=== PATIENT | male | born 1965 | race Two or more races ===

== ENCOUNTER 2018-11-11 14:19 | Emergency (ER) | payer OTHER ==
[~2018-11-11] VITALS: Ht 180.3 cm; Wt 81.6 kg
--- NOTE | 2018-11-11 15:28 | NUR ---
urine collected and sent to lab.
--- NOTE | 2018-11-11 15:31 | NUR ---
CAME TO THE ER C/O OF CHILLS x 2 DAYS, "I FEEL SICK, I WANT TO KILL MYSELF" +SI/-HI. HAS PLAN TO JUMP OFF A BRIDGE. NO OTHER COMPLAINTS AT THIS TIME, NO ACUTE DISTRESS NOTED. SUICIDE PRECAUTIONS IMPLEMENTED, SITTER AT BEDSIDE. READY FOR EVAL.
[2018-11-11 15:45] LABS: HEMATOCRIT 38 % (39-51); HEMOGLOBIN 12.8 g/dL (13.5-17.5); LYMPHOCYTES # (AUTO) 1.3 /CMM (0.8-4.8); LYMPHOCYTES % (AUTO) 30.9 % (20.0-44.0); MEAN CORPUSCULAR HGB CONC 34 g/dl (31.0-36.0); MEAN CORPUSCULAR VOLUME 94 fL (80-96); MONOCYTES # (AUTO) 0.4 /CMM (0.1-1.30); MONOCYTES % (AUTO) 8.9 % (2.0-12.0); NEUTROPHILS # (AUTO) 2.4 /CMM (1.8-8.9); NEUTROPHILS % (AUTO) 58.2 % (43.0-81.0); PLATELET COUNT (AUTO) 204 /CMM (150-450); RED BLOOD CELL COUNT(AUTO) 4.04 MIL/uL (4.5-6.0); WHITE BLOOD COUNT (AUTO) 4.1 K/uL (4.3-11.0)
[2018-11-11 15:47] LABS: APPEARANCE,URINE Clear (CLEAR); BILIRUBIN,URINE Negative (NEGATIVE); BLOOD, URINE Negative Ery/uL (NEGATIVE); COLOR,URINE Yellow (YELLOW); KETONES,URINE Negative (NEGATIVE); LEUKOCYTE ESTERASE ,URINE Negative (NEGATIVE); NITRITE, URINE Negative (NEGATIVE); PH,URINE 6.5 (5.0-8.0); PROTEIN,URINE Negative (NEGATIVE); UGLUCOSE Negative (NEGATIVE)
[2018-11-11 15:53] LABS: CALCIUM, SERUM 8.6 mg/dL (8.5-10.1); CARBON DIOXIDE 33 mmol/L (21-32); CHLORIDE 104 mmol/L (98-107); CREATININE 0.9 mg/dL (0.6-1.3); GLUCOSE 102 mg/dL (74-106); POTASSIUM 3.8 mmol/L (3.5-5.1); SODIUM SERUM 142 mmol/L (136-145); UREA NITROGEN, BLOOD 12 mg/dL (7-18)
[2018-11-11 15:56] LABS: URINE AMORPHOUS URATE Few /HPF (None Seen)
[2018-11-11 15:57] LABS: BACTERIA,URINE Rare /HPF (None Seen); RBC,URINE 0-2 /HPF (0-2); SQUAMOUS EPITHELIAL CELL,UR None Seen /HPF (None Seen); WBC,URINE 0-2 /HPF (0-3)
[2018-11-11 15:59] LABS: ALANINE AMINOTRANSFERASE 26 U/L (12-78); ALBUMIN 3.8 g/dL (3.4-5.0); ALCOHOL, BLOOD < 3 mg/dL (0-0); ALKALINE PHOSPHATASE 57 U/L (46-116); ASPARTATE AMINOTRANSFERASE 21 U/L (15-37); BILIRUBIN,DIRECT 0.1 mg/dL (0.0-0.2); BILIRUBIN,TOTAL 0.5 mg/dL (0.2-1.0); TOTAL PROTEIN, SERUM 6.6 g/dL (6.4-8.2)
[2018-11-11 16:00] LABS: ACETAMINOPHEN < 2 ug/ml (10-30); SALICYLATE < 2.8 mg/dL (2.8-20.0)
--- NOTE | 2018-11-11 16:04 | NUR ---
Social service consult requested by Dr. Lau for suicidal ideation. Pt. is a 53 year old male who came to [facility] for suicidal ideation with plan to jump off a bridge into a river. SHU met with pt. bedside. Pt. is alert and oriented x 3. Pt. is cooperative with SW. Pt. states he is homeless and has been for the past 6 years. Pt. states, he is suicidal with a plan to jump off a bridge. Pt. is wanting voluntary admission to a psychiatric hospital. SHU informed pt. she will refer him to [facility]. Pt. agreed. 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 Pt. denies alcohol and marijuana use. Pt. receives food stamps and GR. Pt. was receiving SSI benefits but does not anymore and wants to reinstate them. SHU sent referral packet to [facility] at . SHU called [facility] and spoke to Rukhsana. She stated, they will most likely accept pt. when medically cleared. SHU informed her to follow up with ED and gave her the contact number.
--- NOTE | 2018-11-11 17:16 | NUR ---
PT RESTING COMFORTABLY, NO COMPLAINTS AT THIS TIME. ASKING FOR FOOD. CALLED DIETARY FOR FOOD TRAY
--- NOTE | 2018-11-11 18:12 | NUR ---
CALLED [facility] FOR EVAL. WILL COME AFTER ENCINO VISIT
--- NOTE | 2018-11-11 19:42 | NUR ---
Patient is resting comfortably in bed with eyes closed. Easily aroused. VSS
--- NOTE | 2018-11-11 20:17 | NUR ---
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
--- NOTE | 2018-11-11 20:35 | NUR ---
CALLED [facility] FOR TRANSFER ETA OF [id number] WAS GIVEN. TRIP#[id number]
[2018-11-11 22:15] VITALS: BP 138/76
--- NOTE | 2018-11-11 22:15 | NUR ---
REPORT GIVEN TO YOLANDE MILLAN AT [facility] FOR [facility]
--- NOTE | 2018-11-11 22:45 | NUR ---
REPORT GIVEN TO [facility] UNIT 310 FOR TRANSPORT
== END 2018-11-11 22:55 ==
LOC: ER 14:20
DX: R45.851 Suicidal ideations (principal); F32.9 Major depressive disorder, single episode, unspecified; F41.9 Anxiety disorder, unspecified; F10.10 Alcohol abuse, uncomplicated; F15.10 Other stimulant abuse, uncomplicated; Y90.0 Blood alcohol level of less than 20 mg/100 ml
CPT/HCPCS: 36415; 80048; 80076; 80305; 80307; 80329; 81001; 85025; 99285; G0480; 81000-TC

== ENCOUNTER 2019-07-28 23:04 | Emergency (ER) | payer OTHER ==
[~2019-07-28] VITALS: Ht 170.2 cm; Wt 72.6 kg
--- NOTE | 2019-07-28 23:20 | NUR ---
PT AAOX4. AMBULATORY WITH STEADGY GAIT. BIBS FOR SI W/ PLAN TO RUN IN TO TRAFFIC. -HI. PLACED IN GOWN, BELONINGS IN LOCKER. PT PLACED ON MONITOR AND PULSE OX. VSS. NO ACUTE DISTRESS NTOED. SITTER AT BEDSIDE.
[2019-07-28] MEDS ORDERED: OLANZAPINE 5 MG TABLET ONE (23:23)
--- NOTE | 2019-07-28 23:28 | NUR ---
SECURITY CALLED FOR WANDING.
[2019-07-28] MEDS ORDERED: OLANZAPINE 5 MG TABLET PO ONE (23:30)
[2019-07-28 23:34] LABS: BASOPHILS # (AUTO) 0.1 /CMM (0.0-0.2); BASOPHILS % (AUTO) 1.4 % (0.0-2.0); EOSINOPHILS % (AUTO) 2.1 % (0.0-6.0); HEMATOCRIT 41 % (39-51); LYMPHOCYTES # (AUTO) 1.5 /CMM (0.8-4.8); LYMPHOCYTES % (AUTO) 29.8 % (20.0-44.0); MEAN CORPUSCULAR HGB CONC 34 g/dl (31.0-36.0); MEAN CORPUSCULAR VOLUME 94 fL (80-96); MONOCYTES # (AUTO) 0.4 /CMM (0.1-1.30); MONOCYTES % (AUTO) 7.5 % (2.0-12.0); NEUTROPHILS # (AUTO) 3.1 /CMM (1.8-8.9); NEUTROPHILS % (AUTO) 59.2 % (43.0-81.0); PLATELET COUNT (AUTO) 289 /CMM (150-450); RED BLOOD CELL COUNT(AUTO) 4.39 MIL/uL (4.5-6.0); WHITE BLOOD COUNT (AUTO) 5.2 K/uL (4.3-11.0)
[2019-07-28 23:42] LABS: CALCIUM, SERUM 8.2 mg/dL (8.5-10.1); CARBON DIOXIDE 31 mmol/L (21-32); CHLORIDE 104 mmol/L (98-107); GLUCOSE 148 mg/dL (74-106); POTASSIUM 3.5 mmol/L (3.5-5.1); SODIUM SERUM 140 mmol/L (136-145); UREA NITROGEN, BLOOD 14 mg/dL (7-18)
[2019-07-28 23:53] LABS: ACETAMINOPHEN < 2 ug/ml (10-30); ALANINE AMINOTRANSFERASE 24 U/L (12-78); ALBUMIN 3.8 g/dL (3.4-5.0); ALCOHOL, BLOOD < 3 mg/dL (0-0); ALKALINE PHOSPHATASE 73 U/L (46-116); ASPARTATE AMINOTRANSFERASE 23 U/L (15-37); BILIRUBIN,DIRECT 0.2 mg/dL (0.0-0.2); SALICYLATE < 0.2 mg/dL (2.8-20.0); TOTAL PROTEIN, SERUM 6.8 g/dL (6.4-8.2)
[2019-07-29 00:02] LABS: APPEARANCE,URINE Clear (CLEAR); BILIRUBIN,URINE SMALL (NEGATIVE); BLOOD, URINE Negative Ery/uL (NEGATIVE); COLOR,URINE Yellow (YELLOW); KETONES,URINE Trace (NEGATIVE); LEUKOCYTE ESTERASE ,URINE Negative (NEGATIVE); NITRITE, URINE Negative (NEGATIVE); PROTEIN,URINE Negative (NEGATIVE); UGLUCOSE Negative (NEGATIVE)
--- NOTE | 2019-07-29 00:19 | NUR ---
Patient is resting comfortably in bed with eyes closed. Easily aroused. VSS.
--- NOTE | 2019-07-29 00:29 | NUR ---
CLINICAL INFORMATION FAXED TO [facility]
--- NOTE | 2019-07-29 05:27 | NUR ---
PER TIKI FROM [facility], NO BEDS AVAILABLE AT THIS TIME
--- NOTE | 2019-07-29 05:57 | NUR ---
PT ASLEEP. EASILY AROUSED.
--- NOTE | 2019-07-29 06:37 | NUR ---
PT ACCEPTED TO [facility] ACCEPTING MD: DR. DE JESUS/ DR. LINARES NUMBER FOR REPORT: [phone] EXT [phone]
--- NOTE | 2019-07-29 07:01 | NUR ---
[facility] WILL CALL [facility].
--- NOTE | 2019-07-29 07:06 | NUR ---
[facility] ETA [id number]
--- NOTE | 2019-07-29 07:13 | NUR ---
REPORT GIVEN TO DOLLY LANIER FOR [facility]
--- NOTE | 2019-07-29 08:53 | NUR ---
REPORT GIVEN TO GRAIN GRADER. IN NO DISTRESS.
[2019-07-29 09:03] VITALS: BP 120/81
--- NOTE | 2019-07-29 09:03 | NUR ---
Patient discharged to [facility] VIA EMS in stable condition.
== END 2019-07-29 09:04 ==
LOC: ER 23:09
DX: R45.851 Suicidal ideations (principal); F32.9 Major depressive disorder, single episode, unspecified; F41.9 Anxiety disorder, unspecified; Z98.890 Other specified postprocedural states
CPT/HCPCS: 36415; 80048; 80076; 80305; 80307; 80329; 81001; 85025; 99285; G0480; 81000-TC

== ENCOUNTER 2019-12-30 22:38 | Emergency (ER) | payer OTHER ==
[~2019-12-30] VITALS: Ht 170.2 cm; Wt 73.9 kg
--- NOTE | 2019-12-30 23:00 | NUR ---
PT WAS BIBS FOR PSYCHIATRIC EVALUATION AND POSSIBLE ADMISSION TO [facility] FOR SI AND HI. PT REPORTED HEARING VOICES TELLING HIM TO CHOP PEOPLE'S HEADS OFF AND TO KILL HIMSELF. PT AMBULATORY TO BED 13. WAS PLACED ON HOSPITAL GOWN. ALL BELONGINGS WERE TAKEN AWAY AND PLACED ON SAFE LOCKER. VSS. SI AND HI PRECAUTION IN PLACE. PT REMAINED ON CLOSE SUPERVISION OF A SITTER FOR SAFETY. WILL CONT TO MONITOR.
--- NOTE | 2019-12-30 23:00 | NUR ---
Note rosalie in EDM - 12/31/19 at 0012 by KADY PT WAS BIBS FOR PSYCHIATRIC EVALUATION AND POSSIBLE ADMISSION TO [facility] FOR SI. PT REPORTED NO SPECIFIC PLAN AT THIS TIME. PT AMBULATORY TO BED 13. WAS PLACED ON HOSPITAL GOWN. ALL BELONGINGS WERE TAKEN AWAY AND PLACED ON SAFE LOCKER. VSS. SI PRECAUTION IN PLACE. PT REMAINED ON CLOSE SUPERVISION OF A SITTER FOR SAFETY. WILL CONT TO MONITOR ,
[2019-12-30 23:15] LABS: EOSINOPHILS % (AUTO) 2.2 % (0.0-6.0); HEMATOCRIT 43 % (39-51); HEMOGLOBIN 14.5 g/dL (13.5-17.5); LYMPHOCYTES # (AUTO) 1.7 /CMM (0.8-4.8); LYMPHOCYTES % (AUTO) 34.4 % (20.0-44.0); MEAN CORPUSCULAR HGB CONC 34 g/dl (31.0-36.0); MEAN CORPUSCULAR VOLUME 95 fL (80-96); MONOCYTES # (AUTO) 0.4 /CMM (0.1-1.30); MONOCYTES % (AUTO) 7.9 % (2.0-12.0); NEUTROPHILS # (AUTO) 2.7 /CMM (1.8-8.9); NEUTROPHILS % (AUTO) 54.5 % (43.0-81.0); PLATELET COUNT (AUTO) 257 /CMM (150-450); RED BLOOD CELL COUNT(AUTO) 4.54 MIL/uL (4.5-6.0)
[2019-12-30 23:32] LABS: ALANINE AMINOTRANSFERASE 22 U/L (12-78); ALBUMIN 4.2 g/dL (3.4-5.0); ALKALINE PHOSPHATASE 56 U/L (46-116); ASPARTATE AMINOTRANSFERASE 20 U/L (15-37); BILIRUBIN,DIRECT 0.2 mg/dL (0.0-0.2); BILIRUBIN,TOTAL 0.9 mg/dL (0.2-1.0); CALCIUM, SERUM 8.4 mg/dL (8.5-10.1); CARBON DIOXIDE 33 mmol/L (21-32); CHLORIDE 104 mmol/L (98-107); CREATININE 1.2 mg/dL (0.6-1.3); GLUCOSE 111 mg/dL (74-106); POTASSIUM 3.5 mmol/L (3.5-5.1); SODIUM SERUM 142 mmol/L (136-145); TOTAL PROTEIN, SERUM 7.5 g/dL (6.4-8.2); UREA NITROGEN, BLOOD 12 mg/dL (7-18)
[2019-12-30 23:40] LABS: ACETAMINOPHEN 0 ug/ml (10-30)
[2019-12-30 23:41] LABS: SALICYLATE < 0.2 mg/dL (2.8-20.0)
--- NOTE | 2019-12-30 23:54 | NUR ---
Patient is resting comfortably in bed with eyes closed. Easily aroused. VSS
[2019-12-30 23:56] LABS: APPEARANCE,URINE CLEAR (CLEAR); BILIRUBIN,URINE SMALL (NEGATIVE); BLOOD, URINE NEGATIVE Ery/uL (NEGATIVE); COLOR,URINE YELLOW (YELLOW); KETONES,URINE NEGATIVE (NEGATIVE); LEUKOCYTE ESTERASE ,URINE NEGATIVE (NEGATIVE); NITRITE, URINE NEGATIVE (NEGATIVE); PROTEIN,URINE NEGATIVE (NEGATIVE); UGLUCOSE NEGATIVE (NEGATIVE)
[2019-12-31] LABS: BACTERIA,URINE Few /HPF (None Seen); MUCUS,URINE Many /LPF (None Seen); SQUAMOUS EPITHELIAL CELL,UR Rare /HPF (None Seen)
[2019-12-31 00:03] LABS: ALCOHOL, BLOOD < 3 mg/dL (0-0)
--- NOTE | 2019-12-31 03:06 | NUR ---
CLINICAL FAXED TO [facility] FOR VOLUNTARY ADMISSION.
--- NOTE | 2019-12-31 03:26 | NUR ---
PT ASLEEP, NO ACUTE DISTRESS NOTED, RESP EVEN AND UNLABORED. CALL LIGHT WITHIN REACH. WILL CONTINUE TO MONITOR PT CLOSELY.
--- NOTE | 2019-12-31 05:01 | NUR ---
PT ACCEPTED AT [facility] ACCEPTING MD NOGUERA PHONE# FOR REPORT PT WILL GO TO UNIT 1
--- NOTE | 2019-12-31 05:18 | NUR ---
SPOKE WITH [facility] IN REGARDS TO TRANSPORT TO [facility]. ETA 1-4 HOURS. TRIP # [id number].
[2019-12-31 05:37] VITALS: BP 127/73
--- NOTE | 2019-12-31 05:42 | NUR ---
[facility] CALLED REGARDING TRANSPPORT ([facility]) ETA 45MIN.
--- NOTE | 2019-12-31 05:43 | NUR ---
REPORT GIVEN TO MONROE LANIER FOR [facility]
--- NOTE | 2019-12-31 06:36 | NUR ---
TRANSPORT AT BEDSIDE REPORT GIVEN TO EMT TRANSPORT.
== END 2019-12-31 06:50 ==
LOC: ER 22:49
DX: F29 Unspecified psychosis not due to a substance or known physiological condition (principal); F32.9 Major depressive disorder, single episode, unspecified; F41.9 Anxiety disorder, unspecified; Z90.89 Acquired absence of other organs; Z98.890 Other specified postprocedural states; Z59.0 Homelessness
CPT/HCPCS: 36415; 80048; 80076; 80305; 80307; 80329; 81001; 85025; 99285; G0480; 81000-TC

== ENCOUNTER 2020-10-20 16:34 | Emergency (ER) | payer OTHER ==
[~2020-10-20] VITALS: Ht 170.2 cm; Wt 61.2 kg
--- NOTE | 2020-10-20 17:10 | NUR ---
CALLED TO TRIAGE NOT IN WAITING ROOM
--- NOTE | 2020-10-20 18:01 | NUR ---
PT SELF PRESENTS TO ED C/O DEPRESSION W/ SUICIDAL IDEATION W/ PLAN TO RUN TO TRAFFIC. ADMITS TO METH USE. DENIES HI. PT IS VERBALLY RESPONSIVE AND COOPERATIVE TO STAFF. STABLE VITALS. NAD NOTED. AWAITING MD WHITTEN.
--- NOTE | 2020-10-20 18:03 | NUR ---
KD CHEN AT BEDSIDE FOR EVAL.
[2020-10-20 18:45] VITALS: BP 120/78
[2020-10-20 18:55] LABS: BILIRUBIN,URINE Negative (NEGATIVE); COLOR,URINE YELLOW (YELLOW); LEUKOCYTE ESTERASE ,URINE Negative (NEGATIVE); NITRITE, URINE Negative (NEGATIVE); PH,URINE 5.5 (5.0-8.0); PROTEIN,URINE Negative (NEGATIVE); UGLUCOSE Negative (NEGATIVE)
--- NOTE | 2020-10-20 19:11 | NUR ---
HARSHAL GREEN AT BEDSIDE FOR BLOOD DRAW.
[2020-10-20 19:13] LABS: BASOPHILS # (AUTO) 0.1 K/uL (0.0-0.2); BASOPHILS % (AUTO) 2.1 % (0.0-2.0); EOSINOPHILS % (AUTO) 1.6 % (0.0-6.0); HEMATOCRIT 40 % (39-51); HEMOGLOBIN 13.6 g/dL (13.5-17.5); LYMPHOCYTES # (AUTO) 1.7 K/uL (0.8-4.8); LYMPHOCYTES % (AUTO) 32.6 % (20.0-44.0); MEAN CORPUSCULAR HGB CONC 34 g/dl (31.0-36.0); MEAN CORPUSCULAR VOLUME 93 fL (80-96); MONOCYTES # (AUTO) 0.3 K/uL (0.1-1.30); MONOCYTES % (AUTO) 6.6 % (2.0-12.0); NEUTROPHILS # (AUTO) 2.9 K/uL (1.8-8.9); NEUTROPHILS % (AUTO) 57.1 % (43.0-81.0); PLATELET COUNT (AUTO) 277 K/uL (150-450); WHITE BLOOD COUNT (AUTO) 5.1 K/uL (4.3-11.0)
[2020-10-20 19:15] LABS: BACTERIA,URINE Rare /HPF (None Seen); MUCUS,URINE Few /LPF (None Seen); RBC,URINE 0-2 /HPF (0-2); SQUAMOUS EPITHELIAL CELL,UR 0-2 /HPF (None Seen); WBC,URINE 0-2 /HPF (0-3)
[2020-10-20 19:22] LABS: CALCIUM, SERUM 8.6 mg/dL (8.5-10.1); CARBON DIOXIDE 28 mmol/L (21-32); CHLORIDE 105 mmol/L (98-107); GLUCOSE 118 mg/dL (74-106); POTASSIUM 3.9 mmol/L (3.5-5.1); SODIUM SERUM 140 mmol/L (136-145); UREA NITROGEN, BLOOD 15 mg/dL (7-18)
[2020-10-20 19:27] LABS: ACETAMINOPHEN < 10 ug/ml (10-30); ALANINE AMINOTRANSFERASE 21 U/L (12-78); ALCOHOL, BLOOD < 3 mg/dL (0-0); ALKALINE PHOSPHATASE 58 U/L (46-116); ASPARTATE AMINOTRANSFERASE 19 U/L (15-37); BILIRUBIN,DIRECT 0.2 mg/dL (0.0-0.2); BILIRUBIN,TOTAL 0.7 mg/dL (0.2-1.0); TOTAL PROTEIN, SERUM 6.7 g/dL (6.4-8.2)
--- NOTE | 2020-10-20 20:10 | NUR ---
[facility]
--- NOTE | 2020-10-20 22:27 | NUR ---
GILBERT MIRANDA AT [facility] PT IS ACCEPTED AT [facility] BY DR HERNÁNDEZ. UNIT 2
--- NOTE | 2020-10-20 23:29 | NUR ---
CALLED TRANSPORT [facility] WITH ETA OF 45 MINS.
--- NOTE | 2020-10-20 23:39 | NUR ---
RE[place] TO [place]UM[place] [facility] [place] [place]
--- NOTE | 2020-10-21 00:20 | NUR ---
PATIENT IS TRANSFERRED [facility]IA[facility]ULANCE [facility]
== END 2020-10-21 00:21 ==
LOC: ER 16:34
DX: R45.851 Suicidal ideations (principal); F15.10 Other stimulant abuse, uncomplicated; Z59.0 Homelessness; F32.9 Major depressive disorder, single episode, unspecified; Z20.822 Contact with and (suspected) exposure to COVID-19
CPT/HCPCS: 36415; 80048; 80076; 80143; 80307; 80320; 81001; 85025; 87426; 99285; C9803; G0480